=== PATIENT | female | born 1990 | race Two or more races ===

== ENCOUNTER 2016-12-23 07:33 | Emergency (ER) | payer MEDICAID ==
[~2016-12-23] VITALS: Ht 157.5 cm; Wt 52.2 kg
[~2016-12-23 07:33] MED LIST: CEPH-37 PO; PRENTAB40 OR
[2016-12-23 08:00] LABS: Urine Bilirubin Negative (Negative); Urine Color Yellow (Yellow); Urine Glucose Normal (Normal); Urine Ketone Negative (Negative); Urine Mucus FEW (None Seen); Urine RBC 415 /hpf (0 - 4); Urine Squamous Epithelial Cell FEW /hpf (<5); Urine Urobilinogen Normal (Negative); Urine WBC Clumps PRESENT /hpf (None Seen)
[2016-12-23 08:01] LABS: Urine Blood 2+ /uL (Negative); Urine Nitrite POSITIVE (Negative)
[2016-12-23 08:15] VITALS: BP 126/75
== END 2016-12-23 08:31 | disposition home or self-care (01) ==
LOC: ER 07:33
DX: N39.0 Urinary tract infection, site not specified (principal)
CPT/HCPCS: 81001